=== PATIENT | female | born 1955 | race Caucasian/White ===

== ENCOUNTER 2019-01-12 09:14 | Observation (INO) ==
[2019-01-12 10:17] LABS: Immature Granulocytes % 0.2 % (0-4); Lymphocytes % 31.8 %; Mean Corpuscular Volume 105.8 fL (83.0-100.0)
[2019-01-12 10:19] LABS: Basophils % 0.9 %; Eosinophils # 0.3 K/mcL (0.0-0.6); Eosinophils % 5.7 %; Hematocrit 45.4 % (35.3-44.9); Hemoglobin 15.7 g/dL (11.5-15.4); Immature Platelets 2.5 % (1.1-6.1); Lymphocytes # 1.4 K/mcL (0.6-4.6); Mean Corpuscular HGB Conc 34.6 g/dL (31.6-35.5); Mean Corpuscular Hemoglobin 36.6 pg (28.0-33.3); Monocytes # 0.5 K/mcL (0.0-1.3); Monocytes % 10.5 %; Neutrophils # 2.2 K/mcL (1.6-8.9); Platelet Count 92 K/mcL (140-400); Red Blood Count 4.29 M/mcL (3.82-4.97); Red Cell Distribution Width 13.3 % (11.5-14.5); Segmented Neutrophils % 50.9 %; White Blood Count 4.4 K/mcL (4.3-11.1)
[2019-01-12 10:37] LABS: Alanine Aminotransferase 27 Units/L (7-52); Albumin 3.4 g/dL (3.5-5.7); Albumin/Globulin Ratio 0.8 (1.1-2.2); Alkaline Phosphatase 131 Units/L (34-104); Aspartate Amino Transferase 54 Units/L (13-39); BUN/Creatinine Ratio 8 (6-26); Bilirubin,Direct 0.5 mg/dL (0.0-0.2); Bilirubin,Indirect 1.1 mg/dL (0.0-1.2); Bilirubin,Total 1.6 mg/dL (0.3-1.0); Blood Urea Nitrogen 5 mg/dL (8-23); Calcium 9.2 mg/dL (8.6-10.3); Carbon Dioxide 27 mEq/L (23-29); Chloride 101 mEq/L (98-107); Globulin 4.1 g/dL (2.4-3.5); Glucose 115 mg/dL (70-105); Osmolality,Calculated 286 (280-300); Potassium 3.8 mEq/L (3.5-5.1); Sodium 139 mEq/L (136-145); Total Protein 7.5 g/dL (6.4-8.9); Troponin I < 0.03 ng/mL (< 0.04); eGFR For African Americans > 60 (> 60); eGFR For Non-African Americans > 60 (> 60)
[2019-01-12] MEDS ORDERED: Isovue-370 500 ML BOTTLE IVP ONE (10:43)
[2019-01-12] MEDS ORDERED: cefTRIAXone 1,000 MG in Water for inj. (sterile) 10 ML IVP ONE (11:35)
[2019-01-12] MEDS ORDERED: Azithromycin 500 MG in D5% in Water 250 ML IVPB STA (11:36)
[2019-01-12 12:44] LABS: INR 1.2; Prothrombin Time 13.6 Seconds (9.4-12.1)
[2019-01-12] MEDS ORDERED: Ondansetron 4 MG/2 ML VIAL IVP ONE (13:01)
[2019-01-12] MEDS ORDERED: Ondansetron 4 MG/2 ML VIAL ONE (13:04)
[2019-01-12] MEDS ORDERED: Naloxone 0.4 MG/ML INJ IVP PRN (14:29)
[2019-01-12] MEDS ORDERED: Ondansetron 4 MG/2 ML VIAL IVP PRN (14:29)
[2019-01-12] MEDS ORDERED: cloNIDine HCl 0.1 MG TABLET PO PRN (14:35)
[2019-01-12] MEDS ORDERED: VALACYCLOVIR HCL 1000 MG PO SCH (14:45)
[2019-01-12] MEDS ORDERED: tiZANidine 4 MG TABLET PO PRN (14:48)
[2019-01-12] MEDS ORDERED: NON-FORMULARY MEDICATION 1 EACH EACH (Gabapentin [Neurontin] 600 MG) PO SCH (15:00)
[2019-01-12] MEDS: *HR* Heparin 5,000 UNIT/ML VIAL SQ SCH (16:51)
[2019-01-12] MEDS: valACYclovir 500 MG TABLET PO SCH (16:51)
[2019-01-12 16:57] LABS: RBC,Pleural Fluid < 0.002 M/mcL
[2019-01-12 17:05] LABS: Glucose,Pleural Fluid 135 mg/dL (No Ref Range); LDH,Pleural Fluid 55 Units/L (No Ref Range); Total Protein,Pleural Fluid < 3.0 g/dL
[2019-01-12 17:52] LABS: Appearance of Pleural Fl Hazy (Clear); Basophils,Pleural Fluid 0 %; Eosinophils,Pleural Fluid 0 %
[2019-01-12] MEDS ORDERED: amLODIPine 5 MG TABLET PO SCH (18:00)
[2019-01-12] MEDS ORDERED: Perflutren Lipid Microsphere 1.3 ML in 0.9 % Sodium Chloride 8.7 ML IVP ONE (19:43)
[2019-01-12] MEDS ORDERED: Perflutren Lipid Microsphere 2 ML VIAL ONE (19:45)
[2019-01-12] MEDS: Gabapentin 300 MG CAPSULE PO SCH (22:23)
[2019-01-13 05:14] LABS: Basophils % 0.8 %; Hematocrit 39.9 % (35.3-44.9); Mean Platelet Volume 10.1 fL (9.4-12.4)
[2019-01-13 05:16] LABS: Eosinophils # 0.2 K/mcL (0.0-0.6); Eosinophils % 4.6 %; Hemoglobin 13.4 g/dL (11.5-15.4); Immature Platelets 2.3 % (1.1-6.1); Lymphocytes # 1.3 K/mcL (0.6-4.6); Lymphocytes % 33.8 %; Mean Corpuscular HGB Conc 33.6 g/dL (31.6-35.5); Mean Corpuscular Hemoglobin 35.6 pg (28.0-33.3); Mean Corpuscular Volume 106.1 fL (83.0-100.0); Monocytes # 0.5 K/mcL (0.0-1.3); Monocytes % 12.4 %; Neutrophils # 1.9 K/mcL (1.6-8.9); Red Blood Count 3.76 M/mcL (3.82-4.97); Red Cell Distribution Width 13.3 % (11.5-14.5); Segmented Neutrophils % 48.4 %; White Blood Count 3.9 K/mcL (4.3-11.1)
[2019-01-13 05:21] LABS: Platelet Count 76 K/mcL (140-400)
[2019-01-13 05:27] LABS: BUN/Creatinine Ratio 8 (6-26); Blood Urea Nitrogen 5 mg/dL (8-23); Calcium 8.4 mg/dL (8.6-10.3); Carbon Dioxide 27 mEq/L (23-29); Chloride 105 mEq/L (98-107); Glucose 98 mg/dL (70-105); Magnesium 1.8 mg/dL (1.6-2.6); Osmolality,Calculated 273 (280-300); Potassium 3.2 mEq/L (3.5-5.1); Sodium 133 mEq/L (136-145); eGFR For African Americans > 60 (> 60); eGFR For Non-African Americans > 60 (> 60)
[2019-01-13 05:29] LABS: Albumin 2.8 g/dL (3.5-5.7); Albumin/Globulin Ratio 0.8 (1.1-2.2); Bilirubin,Direct 0.3 mg/dL (0.0-0.2); Bilirubin,Indirect 0.8 mg/dL (0.0-1.2); Bilirubin,Total 1.1 mg/dL (0.3-1.0); Globulin 3.3 g/dL (2.4-3.5); Total Protein 6.1 g/dL (6.4-8.9)
[2019-01-13] MEDS: valACYclovir 500 MG TABLET PO SCH (05:48)
[2019-01-13] MEDS: *HR* Heparin 5,000 UNIT/ML VIAL SQ SCH (05:48)
[2019-01-13] MEDS: Gabapentin 300 MG CAPSULE PO SCH (08:50)
[2019-01-13] MEDS: Potassium Chloride Elixir 20 MEQ/15 ML UDC PO SCH ×2 (08:50→11:30)
[2019-01-13] MEDS ORDERED: TIZANIDINE HCL 4 MG PO SCH (09:00)
[2019-01-13] MEDS ORDERED: Azithromycin 250 MG TABLET PO SCH (09:00)
[2019-01-13] MEDS ORDERED: Valsartan 160 MG TABLET PO SCH (09:00)
[2019-01-13] MEDS ORDERED: cefTRIAXone 1,000 MG in 0.9 % Sodium Chloride Mini Bag 100 ML IVPB SCH (09:00)
[2019-01-13] MEDS ORDERED: cefTRIAXone 1,000 MG in Water for inj. (sterile) 10 ML IVP SCH (11:00)
[2019-01-13] MEDS ORDERED: Azithromycin 500 MG in 0.9 % Sodium Chloride 250 ML IVPB SCH (11:00)
[2019-01-13 11:28] VITALS: BP 133/72
[2019-01-15 06:03] LABS: Fluid Source for Albumin PLEURAL
== END 2019-01-13 12:54 | disposition home or self-care (01) ==
LOC: EMEROOARM 09:14 → 2ANU 09:14
PROVIDERS: ADMIT Internal Medicine; ATTEND Internal Medicine